=== PATIENT | female | born 1995 | race Two or more races ===

== ENCOUNTER 2023-12-17 02:46 | Emergency (ER) | payer SELFPAY ==
[~2023-12-17] VITALS: Ht 170.2 cm; Wt 202.0 kg
[2023-12-17 03:21] VITALS: BP 119/85; PULSE 105; RESP 26; O2SAT 97
== END 2023-12-17 04:37 | disposition left against medical advice (07) ==
LOC: ER 02:46
DX: M79.10 Myalgia, unspecified site (principal); Z53.21 Procedure and treatment not carried out due to patient leaving prior to being seen by health care provider